=== PATIENT | female | born 1960 | race Caucasian/White ===

== ENCOUNTER 2019-07-28 05:45 | Day surgery (SDC) | payer BC ==
[2019-07-27 14:21] VITALS: BMI 29.2
--- NOTE | 2019-07-28 11:34 | HP ---
History & Physical Update - Physical Physical: No Change - Assessment Assessment: No Change - Plan Plan: No Change (H&P reviwed , no changes,for hysteroscopy, D&C , resection of submucos myoma)
[2019-07-28] MEDS ORDERED: PROPOFOL 20 ML ONE ×2 (11:56)
[2019-07-28] MEDS ORDERED: IBUPROFEN 600 MG TABLET (FP) PO PRN (12:32)
[2019-07-28] MEDS ORDERED: ONDANSETRON 4 MG/2 ML VIAL IVPUSH PRN ×2 (12:32)
[2019-07-28] MEDS ORDERED: ACETAMINOPHEN 325 MG TABLET (FP) PO PRN (12:32)
[2019-07-28] MEDS ORDERED: oxyCODONE HCL 5 MG TABLET PO PRN ×2 (12:32)
[2019-07-28] MEDS ORDERED: IBUPROFEN 800 MG/8 ML IJ IVPB PRN (12:32)
--- NOTE | 2019-07-28 12:39 | OP ---
Operative Note - Note: Operative Date: 07/28/19 Pre-Operative Diagnosis: submucos myoma, , EM polyp Operation: hysteroscopy D&C , EM polypctomy, resection of submucos myoma , D&C Findings: EM polyp, submucos myoma, EM atrophic Surgeon: Kostas Kevin Anesthesiologist/HOSPICE DIRECTOR: Uriel Smyth Specimens Removed: EM polyp, submucos myoma, EMC Estimated Blood Loss (mls): 50 Instrument used (Debridements only): symphion resectoscope Drains & Tubes with Location: none Blood Volume Replaced (mls): 0 Operative Report Dictated: Yes
[2019-07-28] MEDS ORDERED: LACTATED RINGERS SOLUTION 1,000 ML IV SCH (12:45)
[2019-07-28] MEDS ORDERED: ELECTROLYTE-148 SOLN 1,000 ML IV SCH (12:45)
--- NOTE | 2019-07-28 13:55 | OP ---
DATE OF OPERATION: 07/28/2019 PREOPERATIVE DIAGNOSIS: Abnormal endometrium, rule out submucosal myoma with polyp. POSTOPERATIVE DIAGNOSIS: Abnormal endometrium, rule out submucosal myoma with polyp. PROCEDURE: Hysteroscopy, endometrial polypectomy, resection of submucosal myoma, and dilation and curettage. SURGEON: Kostas Negrete MD ANESTHESIA: General. ANESTHESIOLOGIST: Uriel Smyth DO ESTIMATED BLOOD LOSS: 50 mL. DESCRIPTION OF PROCEDURE: Patient was taken to the operating room under adequate general anesthesia. Abdomen, vagina, and perineum were prepped and draped. Exam under anesthesia revealed a large cystocele, and there was a 2nd-degree uterine prolapse. Cervix was prominent. Uterus was retroverted, enlarged. Adnexa, no masses were palpable. Then with a weighted speculum in the vagina, anterior lip of cervix was grasped with single-hook tenaculum. Uterine cavity was sounded to 8 cm. Then surgical site dilated and Symphion hysteroscope was introduced. Visualization of the endocervical canal appeared to be normal. There was a 2 cm polyp at the lower uterine segment posteriorly. The endometrium appeared to be atrophic. There was a submucous myoma in the posterior wall of the uterus approximately 1-2 cm. Both cornua regions were identified. No other abnormality was noted. Then with the Symphion resectoscope, the endometrial polyp was 1st removed and then the polyp was suctioned out. Then also with Symphion resectoscope, the submucosal myoma was resected, and it is complete. No active bleeding was seen. Endometrial cavity was irrigated and no other abnormality noted. Fluid deficit was 150 mL. Hysteroscope was withdrawn and then cervix was slightly dilated and then endometrial curetting was done. Minimal amount of tissue was obtained. Patient tolerated procedure well. Left the OR in good condition. KOSTAS NEGRETE M.D. /[id number]
[2019-07-28 14:00] VITALS: TEMP 98.3
[2019-07-28 14:48] VITALS: BP 119/77; PULSE 86
--- NOTE | 2019-07-29 15:24 | PATH ---
Surgical Pathology Report Patient Name: JUANA CHINO [facility]. Rec. #: [id number] /Age/Gender: 1960 (Age: 58) / F Account: [id number] Location: [facility] Taken: 07/28/2019 Received: 07/28/2019 Reported: 07/29/2019 Physicians: Kostas Kevin M.D. Specimen(s) Received A: SUBMUCOSAL MYOMA B: ENDOMETRIAL POLYP Clinical History Leiomyoma of uterus Final Diagnosis A. SUBMUCOSAL MYOMA, HYSTEROSCOPIC CURETTAGE AND RESECTION: FRAGMENTS OF ENDOMETRIAL POLYP AND SCANT BENIGN ENDOCERVICAL GLANDULAR TISSUE. Note: no definitive tissue suggestive of leiomyoma is identified. B. ENDOMETRIAL POLYP, HYSTEROSCOPIC CURETTAGE AND RESECTION: ENDOCERVICAL POLYP. Electronically Signed Bella Baker M.D. Gross Description A. Received in formalin labeled "submucosal myoma," is a less than 1 g, 1.3 x 1.0 x 0.2 cm aggregate of jones red soft tissue fragments. The specimen is entirely submitted in one cassette. B. Received in formalin labeled "endometrial polyp," are 2 pink-jones, polypoid portions of soft tissue measuring 0.7 x 0.4 x 0.1 cm and 1.3 x 0.7 x 0.2 cm. The specimens are submitted in toto in one cassette. 07/28/201907/28/2019
== END 2019-07-28 14:38 | disposition home or self-care (01) ==
LOC: JASU-SURG 05:45
PROVIDERS: ATTEND Obstetrics & Gynecology
PROC: 0UDB7ZX Extraction of Endometrium, Via Natural or Artificial Opening, Diagnostic (ICD-10-PCS; 2019-07-28)
PROC: 0UJD8ZZ Inspection of Uterus and Cervix, Via Natural or Artificial Opening Endoscopic (ICD-10-PCS; 2019-07-28)
PROC: 0UB98ZZ Excision of Uterus, Via Natural or Artificial Opening Endoscopic (ICD-10-PCS; principal; 2019-07-28 11:00)
PROC: 0UB97ZX Excision of Uterus, Via Natural or Artificial Opening, Diagnostic (ICD-10-PCS; 2019-07-28 11:00)
DX: D25.0 Submucous leiomyoma of uterus (principal); N84.0 Polyp of corpus uteri
CPT/HCPCS: 88305-TC; 94760

== ENCOUNTER 2020-11-22 04:20 | Day surgery (SDC) | payer BC ==
[2020-11-21 13:05] VITALS: BMI 29.2
[2020-11-22 09:39] VITALS: TEMP 97.5
[2020-11-22 11:03] VITALS: BP 106/63; PULSE 64
== END 2020-11-22 10:56 | disposition home or self-care (01) ==
LOC: JASU-ENDO 04:20
PROVIDERS: ATTEND Internal Medicine Gastroenterology
PROC: 0DJD8ZZ Inspection of Lower Intestinal Tract, Via Natural or Artificial Opening Endoscopic (ICD-10-PCS; principal; 2020-11-22 09:08)
DX: Z12.11 Encounter for screening for malignant neoplasm of colon (principal); K57.30 Diverticulosis of large intestine without perforation or abscess without bleeding; K64.8 Other hemorrhoids; K63.89 Other specified diseases of intestine; Z86.010 Personal history of colon polyps